=== PATIENT | female | born 1985 | race Caucasian/White ===

== ENCOUNTER 2024-11-09 12:21 | Emergency (ER) | payer OTHER, SELFPAY ==
[2024-11-09 12:25] VITALS: BP 157/99
--- NOTE | 2024-11-09 13:27 | ED.GENMED ---
History of Present Illness
General
Chief Complaint: Skin Problem
Time Seen by Provider: 11/09/24 12:50
History of Present Illness
History of Present Illness:
38-year-old female presents for evaluation of a minor laceration to the right index finger sustained on a kitchen knife. She takes Xarelto and the bleeding is not controlled.
Past History
Past History
ED Past Medical History: Asthma and Psychiatric
ED Past Surgical History: Appendectomy and Orthopedic
Social History
Tobacco: Non-smoker
Alcohol: None
Drug: None
Personal: Single
Employment: Employed (ER nurse)
Review of Systems
Review of Systems
Allergies reviewed?: Yes
All Other Systems: ROS reviewed and negative except as documented in HPI and ROS
Phy Exam
Physical Exam
Physical Exam:
GEN: Well appearing, NAD, WDWN
HEENT: Oral mucosa moist, no scleral icterus
Cardiac: Regular rate
Lung: No respiratory distress, no tachypnea
MSK: No gross deformity or injuries
Skin: Good color, no pallor or jaundice. Subcentimeter linear laceration to the finger pad of the right index finger with active venous bleeding
Neuro: AO x3, moves all extremities freely
Psych: Calm, cooperative
Course
Vital Signs
Initial and Last Documented VS:
Initial Vital Signs
Temp Pulse Resp BP Pulse Ox
98.9 F 92 16 157/99 98
11/09/24 12:25 11/09/24 12:25 11/09/24 12:25 11/09/24 12:25 11/09/24 12:25
Last Documented Vital Signs
Temp Pulse Resp BP Pulse Ox
98.9 F 92 16 157/99 98
11/09/24 12:25 11/09/24 12:25 11/09/24 12:25 11/09/24 12:25 11/09/24 12:25
MDM/Problems Addressed
MDM/Problems Addressed:
Finger tourniquet applied and topical lidocaine with epinephrine was soaked into the wound with adequate hemostasis. Glue was then applied for hemostatic purposes.
*Critical Care Note
Total Time (30-74mins, 75-104mins- exclusive of procedures): Not Applicable
ED Attending Note
-
Portions of this chart may have been created with voice recognition software.� Occasional wrong word or��sound alike� substitutions may have occurred due to the inherent limitations of voice recognition software.
Discharge Plan
Departure
Patient Disposition: Home (Routine Discharge)
Date of Disposition: 11/09/24
Time of Disposition: 13:27
Patient with high blood pressure during this ER visit?: No
Discharge Problem:
Finger laceration
Instructions: Laceration Repair With Glue ED
Prescriptions:
No Action
cyclobenzaprine 10 MG tablet
10 mg PO TIDPRN PRN (Reason: muscle spasm)
acetaminophen-codeine 1 TABLET tablet
1 tab PO Q6HPRN PRN (Reason: neck pain)
albuterol sulfate 1 PUFF HFA aerosol inhaler
2 puff inhalation R Q4HPRN PRN (Reason: sob/asthma)
multivitamin Tablet
1 tab PO DAILY
trazodone 50 mg Tablet
50 mg PO HS
clonazepam 1 mg Tablet
1 mg PO BID PRN (Reason: anxiety)
losartan 25 mg Tablet
25 mg PO HS
bupropion HCl [Wellbutrin XL] 150 mg Tablet Extended Release 24 Hr
150 mg PO DAILY
duloxetine [Cymbalta] 20 mg Capsule,Delayed Release(Dr/Ec)
20 mg PO HS
nebivolol [Bystolic] 5 mg Tablet
5 mg PO HS
Xarelto 10 mg Tablet
10 mg PO HS
omeprazole 40 mg Capsule,Delayed Release(Dr/Ec)
40 mg PO DAILY
amitriptyline 10 mg Tablet
10 mg PO HS
nitrofurantoin monohyd/m-cryst [Macrobid] 100 mg capsule
100 mg PO BID Qty: 20 0RF
Rx Instructions:
for 10days
Xarelto 15 mg tablet
15 mg PO BID 21 Days Qty: 42 0RF
Referrals:
Ellen Crocker DO [Family Provider] -
Interventions
Interventions:
*Risk Screen - Suicide Last Done: 11/09/24 12:25
*Neglect/Abuse Screening Last Done: 11/09/24 12:25
*Nursing Disposition Last Done: 11/09/24 13:59
ED-Skin Assessment Last Done: 11/09/24 12:50
Discharge Date and Time
Discharge Date/Time: 11/09/24 13:59
Print Language: [id number]
== END 2024-11-09 13:59 | disposition home or self-care (01) ==
LOC: EMR 12:21
PROVIDERS: EMERGENCY PHYSICIAN Emergency Medicine; FAMILY PHYSICIAN Family Medicine
DX: S61.210A Laceration without foreign body of right index finger without damage to nail, initial encounter (principal); W26.0XXA Contact with knife, initial encounter; J45.909 Unspecified asthma, uncomplicated; Z79.01 Long term (current) use of anticoagulants
CPT/HCPCS: 99282